=== PATIENT | male | born 1965 | race Caucasian/White ===

== ENCOUNTER 2018-04-30 11:50 | Emergency (ER) | payer OTHER ==
[2018-04-30] MEDS ORDERED: Metoclopramide 10 MG/2 ML SDV IVPUSH ONE (12:32)
[2018-04-30] MEDS ORDERED: HYDROmorphone 1 MG/ML Syringe IVPUSH ONE (12:32)
[2018-04-30] MEDS ORDERED: Acetaminophen 325 MG Tab PO ONE (12:34)
--- NOTE | 2018-04-30 12:37 | EDM.PDOC ---
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 Patient reports that he became acutely ill middle of MondayApril 27. Acute onset of generalized myalgia headache or loss of appetite paroxysmal minimally productive cough. Clinically has all the signs and symptoms of influenza. Feeling worse today and is what brought him to the ED. He did not have a flu shot this year. Onset: Sudden Onset Date: 04/27/18 Duration: Day(s):, Getting Worse Location: Reports: Chest (Generalized myalgia with a pounding throbbing headache. Proximal is no minimally productive cough.), Generalized, Other ( Complete loss of appetite) Quality: Reports: Ache (Aches everywhere) Severity: Moderate (8 out of 10) Improves with: Reports: None Worsens with: Reports: None Context: Reports: Other (Got here Monday last week from home. May been exposed to influenza on the airplane or at home since his symptoms started Monday). Denies: Activity, Exercise, Lifting, Sick Contact, Trauma Associated Symptoms: Reports: Chest Pain, Cough (From coughing so much), cough w sputum, Fever/Chills, Headaches, Loss of Appetite, Malaise, Shortness of Breath, Weakness. Denies: Confusion, Diaphoresis (Minimal sputum production), Nausea/Vomiting, Rash, Seizure Treatments CASTING DIRECTOR: Reports: NSAIDS (Naproxen) Generalized Pain Score (Numeric/FACES): 8 - Related Data Allergies Allergy/AdvReac Type Severity Reaction Status Date / Time No Known Allergies Allergy Verified 04/30/18 12:01 Home Meds: Home Meds Acetaminophen [Acetaminophen Extra Strength] 500 mg PO TID PRN 04/30/18 [History ] Cholecalciferol (Vitamin D3) [Vitamin D3] 1,000 mg PO DAILY 04/30/18 [History] Doxepin HCl [Doxepin] 20 mg PO BEDTIME 04/30/18 [History] Escitalopram Oxalate 20 mg PO DAILY 04/30/18 [History] Hydrocodone/Chlorphen P-Stirex [Tussionex Pennkinetic Susp] 5 ml PO Q12H PRN # 60 ml 04/30/18 [Rx] Lidocaine [Anecream5] 1 applic TOP ASDIRECTED PRN 04/30/18 [History] Naproxen 500 mg PO Q12H PRN 04/30/18 [History] Nicotine Polacrilex [Nicotine Lozenge] 2 mg PO ASDIRECTED PRN 04/30/18 [History] Oseltamivir [Tamiflu] 75 mg PO BID #9 cap 04/30/18 [Rx] Prazosin HCl [Prazosin] 2 mg PO BEDTIME 04/30/18 [History] traMADol HCl [Tramadol HCl] 50 mg PO BID PRN 04/30/18 [History] Past Medical History Musculoskeletal History: Reports: Other (See Below) Other Musculoskeletal History: pain issues to knees and lower back; steroid injections in the past Psychiatric History: Reports: Anxiety, PTSD (Arturo takes doxazosin for this) - Past Surgical History GI Surgical History: Reports: Cholecystectomy (Laparoscopic) Social & Family History - Tobacco Use Smoking Status *Q: Current Every Day Smoker Years of Tobacco use: 15 Packs/Tins Daily: 0.5 - Caffeine Use Caffeine Use: Reports: Coffee, Soda, Tea - Recreational Drug Use Recreational Drug Use: No - Living Situation & Occupation Occupation: Employed ED ROS GENERAL - Review of Systems Review Of Systems: See Below Constitutional: Reports: Fever, Chills, Malaise, Weakness, Fatigue, Decreased Appetite, Weight Loss HEENT: Reports: Throat Pain (Very sore throat), Other Respiratory: Reports: Shortness of Breath, Cough, Sputum Cardiovascular: Reports: Chest Pain (Minimal sputum production), Blood Pressure Problem ( from coughing so much), Dyspnea on Exertion, Lightheadedness. Denies : Claudication, Edema (Coughing will make him lightheaded and dizzy at times), Orthopnea ( on a hypertension ) Endocrine: Reports: Fatigue GI/Abdominal: Reports: Decreased Appetite : Reports: No Symptoms Musculoskeletal: Reports: Muscle Pain Skin: Reports: No Symptoms (Generalized myalgia.) Neurological: Reports: Dizziness, Weakness Psychiatric: Reports: No Symptoms Hematologic/Lymphatic: Reports: No Symptoms Immunologic: Reports: No Symptoms ED EXAM, GENERAL - Physical Exam Exam: See Below Exam Limited By: No Limitations General Appearance: Alert, WD/WN, Mild Distress, Other (Appears to be feeling quite unwell. Temperature is currently 38.2.) Eye Exam: Bilateral Eye: Normal Inspection (Does have pain on lateral gaze bilaterally.) Ears: Other (Has bilateral serous otitis media) Ear Exam: Bilateral Ear: TM Dull Throat/Mouth: Other (There are oropharynx is diffusely erythematous without any exudate.) Head: Atraumatic, Normocephalic Neck: Normal Inspection, Supple, Non-Tender, Full Range of Motion. No: Lymphadenopathy (L), Lymphadenopathy (R) Respiratory/Chest: Lungs Clear (Mild tachypnea), Normal Breath Sounds, No Accessory Muscle Use, Respiratory Distress. No: Rales, Rhonchi, Wheezing Cardiovascular: Normal Peripheral Pulses, Regular Rate, Rhythm, No Edema, No Gallop, No Murmur Peripheral Pulses: 2+: Posterior Tibial (L), Posterior Tibial (R), Dorsalis Pedis (L), Dorsalis Pedis (R) GI/Abdominal: Normal Bowel Sounds, Soft, Non-Tender, No Organomegaly, Other ( Abdomen is firm to palpation. No pain) Back Exam: Normal Inspection, Full Range of Motion. No: CVA Tenderness (L), CVA Tenderness (R) Extremities: Normal Inspection, Normal Range of Motion, Non-Tender, No Pedal Edema Neurological: Alert, Oriented, CN II-XII Intact, Normal Cognition Psychiatric: Normal Affect, Normal Mood Skin Exam: Warm, Dry, Intact, Normal Color, No Rash Course - Vital Signs Last Recorded V/S: Last Vital Signs Temp 38.2 C H 04/30/18 12:21 Pulse 88 04/30/18 12:21 Resp 20 04/30/18 12:21 BP 143/77 H 04/30/18 12:21 Pulse Ox 92 L 04/30/18 12:21 - Orders/Labs/Meds Labs: Laboratory Tests 04/30/18 04/30/18 Range/Units 12:45 12:45 WBC 8.85 (4.23-9.07) K/mm3 RBC 4.45 L (4.63-6.08) M/mm3 Hgb 13.9 (13.7-17.5) gm/L Hct 40.4 (40.1-51.0) % MCV 90.8 (79.0-92.2) fl MCH 31.2 (25.7-32.2) pg MCHC 34.4 (32.2-35.5) g/dl RDW Std Deviation 40.9 (35.1-43.9) fL Plt Count 200 (163-337) K/mm3 MPV 9.4 (9.4-12.3) fl Neutrophils % (Manual) 69 H (40-60) % Band Neutrophils % 8 (0-10) % Lymphocytes % (Manual) 10 L (20-40) % Atypical Lymphs % 0 % Monocytes % (Manual) 13 H (2-10) % Eosinophils % (Manual) 0 L (0.8-7.0) % Basophils % (Manual) 0 L (0.2-1.2) Platelet Estimate Adequate RBC Morph Comment Normal Sodium 133 L (136-145) mEq/L Potassium 3.9 (3.5-5.1) mEq/L Chloride 100 (98-107) mEq/L Carbon Dioxide 27 (21-32) mEq/L Anion Gap 9.9 (5-15) BUN 16 (7-18) mg/dL Creatinine 1.2 (0.7-1.3) mg/dL Est Cr Clr Drug Dosing 60.50 mL/min Estimated GFR (MDRD) > 60 (>60) mL/min BUN/Creatinine Ratio 13.3 L (14-18) Glucose 115 H (74-106) mg/dL Calcium 8.4 L (8.5-10.1) mg/dL Magnesium 1.5 L (1.8-2.4) mg/dl Total Bilirubin 0.4 (0.2-1.0) mg/dL AST 24 (15-37) U/L ALT 39 (16-63) U/L Alkaline Phosphatase 64 (46-116) U/L C-Reactive Protein 7.1 H* (<1.0) mg/dL Total Protein 6.9 (6.4-8.2) g/dl Albumin 3.5 (3.4-5.0) g/dl Globulin 3.4 gm/dL Albumin/Globulin Ratio 1.0 (1-2) Meds: Medications Discontinued Medications Generic Name Dose Route Start Last Admin Trade Name Freq PRN Reason Stop Dose Admin Acetaminophen 975 mg 04/30/18 12:34 04/30/18 13:54 Tylenol PO 04/30/18 12:35 975 mg NOW ONE Administration Hydromorphone HCl 1 mg 04/30/18 12:32 04/30/18 13:51 Dilaudid IVPUSH 04/30/18 12:33 1 mg ONETIME ONE Administration Dextrose/Lactated Ringer's 1,000 mls @ 999 mls/hr 04/30/18 12:45 04/30/18 13: 50 Dextrose 5%-Lactated Ringers IV 999 mls/hr ASDIRECTED TARA Administration Ketorolac Tromethamine 30 mg 04/30/18 12:45 04/30/18 13:52 Toradol IVPUSH 30 mg ONETIME TARA Administration Metoclopramide HCl 10 mg 04/30/18 12:32 04/30/18 13:53 Reglan IVPUSH 04/30/18 12:33 10 mg ONETIME ONE Administration Oseltamivir Phosphate 75 mg 04/30/18 13:23 04/30/18 13:54 Tamiflu PO 04/30/18 13:24 75 mg ONETIME ONE Administration - Radiology Interpretation Free Text/Narrative:: 53-year-old male presents to the 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 He is currently residing in a man Camp. She came up to [place] last Monday, April 25. Became ill in the late hours of April 27Monday. He has paroxysmal cough headache and generalized myalgia. Clinically he has influenza infection. Plan IV fluids D5 normal saline at open. Toradol 30 mg IV with Dilaudid 1 mg IV for headache and body ache relief. Tylenol 975 mg by mouth for fever relief. Reglan 10 mg IV for nausea relief. Influenza screen to be done with routine lab work. No chest x-ray at this time as his lungs sound clear to auscultation. - Re-Assessments/Exams Free Text/Narrative Re-Assessment/Exam: 04/30/18 13:48 Labs are done. White count is 8.85 with 69% neutrophils and 8% band cells. Hemoglobin is 13.9 with hematocrit of 40.4. Platelet count is 200, 000. Sodium slightly low at 133. Potassium 3.9. Toward 100 with bicarbonate 27. Anion gap is 9.9. BUN is 16 with a mean of 1.2. GFR is greater than 60. Glucose is 115. Calcium 8.4. Magnesium slightly low at 1.5. Liver function normal. C- reactive protein elevated at 7.1. 04/30/18 14:00: I was ready to discharge the patient home however identified that he has not had his IV fluids given more medications to relieve his acute pain headache and body ache relief. Will therefore be another hour until he can be discharged 04/30/18 15:20: She has completed his liter of IV fluids and is feeling much improved after Toradol and Tylenol to bring his fever down. He will be discharged to home to continue Tamiflu 75 mg twice a day for 5 days. Motrin 6 mg every 6 hours to relieve fever, bodyaches and headaches. Note given to excuse him from the work place for the rest of the week as he is considered contagious to others for 7 days from the time he became ill. He was also given Tussionex cough syrup 5 mils every 12 hours. For cough relief. Departure - Departure Time of Disposition: 13:48 Disposition: Home, Self-Care 01 Condition: Fair Clinical Impression: Influenza A - Discharge Information *PRESCRIPTION DRUG MONITORING PROGRAM REVIEWED*: Not Applicable *COPY OF PRESCRIPTION DRUG MONITORING REPORT IN PATIENT PÉREZ: Not Applicable Prescriptions: Hydrocodone/Chlorphen P-Stirex [Tussionex Pennkinetic Susp] 5 ml PO Q12H PRN # 60 ml PRN Reason: Cough relief Oseltamivir [Tamiflu] 75 mg PO BID #9 cap Instructions: Influenza, Adult, [id number] Referrals: PCP,Not In Area [Primary Care Provider] - Forms: ED Department Discharge, ED Return to Work/School Form Additional Instructions: Evaluation the emergent today in regards to acute illness that started on MondayApril 27. Generalized myalgia or muscle aches associate with a headache and a paroxysmal relatively nonproductive cough. Complete loss of appetite. These are the signs and symptoms of influenza. You're influenza screen was positive for the type a virus which is been most prevalent in our community. Intake is for a week from the time you develop symptoms. This is mostly through coughing . Treatment was started in the ED today with Tamiflu 75 mg and he should try and get the second tablet in by midnight tonight. Twice daily for 5 days to bring the influenza under control and relieve symptoms quicker than normal. Usually after the third fourth tablet fever goes away body aches go away and headache improves. He will cough still for the next 2 weeks. Continue Motrin 600 mg every 6 hours for body ache and headache and fever relief. Fluids such as Gatorade or Powerade and appetite as tolerated. You're given a liter of fluids in the ED to rehydrate you. Resume medications for headache and fever relief. To establish Tamiflu was also provided in the ED. May use cough syrup Tussionex 5 mils every 12 hours as necessary for cough relief. Suggest taking a good hour before bedtime as it takes an hour to work. Off work for the next 4 days you're able to eat and drink normally and regained some of your strength.
[2018-04-30] MEDS ORDERED: Dextrose 5%-Lactated Ringers 1,000 ML IV SCH (12:45)
[2018-04-30] MEDS ORDERED: Ketorolac 30 MG/ML SDV IVPUSH SCH (12:45)
[2018-04-30] MEDS ORDERED: Oseltamivir 75 MG Cap PO ONE (13:23)
== END 2018-04-30 15:15 | disposition home or self-care (01) ==
LOC: JD.ED 11:50
DX: J10.1 Influenza due to other identified influenza virus with other respiratory manifestations (principal); H65.93 Unspecified nonsuppurative otitis media, bilateral; F17.210 Nicotine dependence, cigarettes, uncomplicated; Z79.899 Other long term (current) drug therapy; Z90.49 Acquired absence of other specified parts of digestive tract
CPT/HCPCS: 36415; 80053; 83735; 85007; 85027; 86140; 87804; 96361; 96374; 96375; 99284; A9270; J1170; J1885; J2765; J7042